=== PATIENT | female | born 1985 | race Two or more races ===

== ENCOUNTER 2016-10-10 01:54 | Emergency (ER) | payer SELFPAY ==
[2016-10-10 02:10] VITALS: TEMP 97.9
[2016-10-10] MEDS ORDERED: Lidocaine 1% Inj (20ml) ONE (02:17)
[2016-10-10 02:31] VITALS: PULSE 100
[2016-10-10] MEDS ORDERED: Oxycodone/Acetaminophen 5/325 mg Tab PO STA (02:40)
--- NOTE | 2016-10-10 02:51 | ED PDOC ---
Arrival/HPI - General Chief Complaint: Finger,Hand,&Wrist Time Seen by Provider: 10/10/16 02:11 Historian: Patient - History of Present Illness Narrative History of Present Illness (Text): 10/10/16 02:48 Jing Franklin is a 31 year old female who presents to the emergency department following dislocation of left thumb. States she was getting up from bed tonight when she heard a "pop" and dislocated her left thumb. Reports of pain to the area. Denies any other complaints. Time/Duration: Prior to Arrival Symptom Onset: Sudden Symptom Course: Unchanged Severity Level: Mild Activities at Onset: Light Past Medical History - Provider Review Nursing Documentation Reviewed: Yes - Psychiatric Hx Substance Use: No Family/Social History - Physician Review Nursing Documentation Reviewed: Yes Family/Social History: No Known Family HX Smoking Status: no Hx Alcohol Use: Yes Hx Substance Use: No Allergies/Home Meds Allergies/Adverse Reactions: Allergies No Known Allergies Allergy (Verified 10/10/16 02:09) Home Medications: Home Meds Medication Instructions Recorded Confirmed Alprazolam [Xanax] 0.5 mg PO HS 10/10/16 10/10/16 Review of Systems - Physician Review All systems were reviewed & negative as marked: Yes - Review of Systems Constitutional: Normal. absent: Fatigue, Fevers Respiratory: Normal. absent: SOB, Cough, Sputum Cardiovascular: Normal. absent: Chest Pain, Palpitations Gastrointestinal: Normal. absent: Abdominal Pain, Diarrhea, Nausea, Vomiting Genitourinary Female: Normal Musculoskeletal: Other (left thumb dislocation ) Neurological: Normal. absent: Headache, Dizziness Psychiatric: Normal Physical Exam Vital Signs Reviewed: Yes Vital Signs Temp Pulse Resp BP Pulse Ox 10/10/16 05:36 18 108/74 99 10/10/16 02:31 97.9 F 100 H 22 100 10/10/16 02:05 97.9 F 103 H 18 131/98 H 99 Temperature: Afebrile Blood Pressure: Hypertensive Pulse: Tachycardic Respiratory Rate: Normal Appearance: Positive for: Well-Appearing, Non-Toxic, Comfortable Pain Distress: None Mental Status: Positive for: Alert and Oriented X 3 - Systems Exam Head: Present: Atraumatic, Normocephalic Pupils: Present: PERRL Conjunctiva: Present: Normal Mouth: Present: Moist Mucous Membranes Respiratory/Chest: Present: Clear to Auscultation, Good Air Exchange. No: Respiratory Distress, Accessory Muscle Use Cardiovascular: Present: Regular Rate and Rhythm, Normal S1, S2. No: Murmurs Upper Extremity: Present: NORMAL PULSES, Neurovascularly Intact, Deformity ( dislocated left thumb ). No: Cyanosis, Edema, Swelling, Erythema, Temperature Abnormalties Neurological: Present: GCS=15, CN II-XII Intact, Speech Normal Skin: Present: Warm, Dry, Normal Color. No: Rashes Psychiatric: Present: Alert, Oriented x 3, Normal Insight, Normal Concentration Medical Decision Making ED Course and Treatment: 10/10/16 02:51 Impression: A 31 year old female who presents to the emergency department complaining of dislocation of left thumb. Differential Diagnosis included but are not limited to: Plan: -- Percocet -- X-ray left thumb -- Reassess and disposition Progress Notes: 10/10/16 02:45 Offered patient digital block prior to reduction, but patient refused. Left thumb dislocation reduced with good alignment. pt tolerated procedure well nv exam intact post reduction 10/10/16 04:12 X-ray of thumb shows no fracture and proper alignment. 10/11/16 05:34 - RAD Interpretation Radiology Orders: 10/10/16 02:18 HAND LEFT THUMB [RAD] Stat Sales Closer: ED Physician - Medication Orders Current Medication Orders: Discontinued Medications Lidocaine HCl (Lidocaine 1% (20ml)) Confirm Administered Dose 20 ml .ROUTE .STK- MED ONE Stop: 10/10/16 02:18 Oxycodone/Acetaminophen (Percocet 5/325 Mg Tab) 1 tab PO STAT STA Stop: 10/10/16 02:41 Last Admin: 10/10/16 02:56 Dose: 1 tab - Scribe Statement The provider has reviewed the documentation as recorded by the Jsoafat Brooke Provider Attestation: Provider Scribe Attestation: All medical record entries made by the Jamesibrayne were at my direction and personally dictated by me. I have reviewed the chart and agree that the record accurately reflects my personal performance of the history, physical exam, medical decision making, and the department course for this patient. I have also personally directed, reviewed, and agree with the discharge instructions and disposition. Disposition/Present on Arrival - Present on Arrival Any Indicators Present on Arrival: No History of DVT/PE: No History of Uncontrolled Diabetes: No Urinary Catheter: No History of Decub. Ulcer: No History Surgical Site Infection Following: None - Disposition Have Diagnosis and Disposition been Completed?: Yes Diagnosis: Thumb dislocation Disposition: HOME/ ROUTINE Disposition Time: 05:35 Condition: GOOD Discharge Instructions (ExitCare): Finger Dislocation (ED) Prescriptions: oxyCODONE/Acetaminophen [Percocet 5/325 mg Tab] 1 ea PO QID #8 tab Referrals: Gene Uriostegui MD [Staff Provider] - Follow up with primary
[2016-10-10 05:37] VITALS: BP 108/74; RESP 18; O2SAT 99
--- NOTE | 2016-10-10 07:35 | RAD ---
PROCEDURE: Left Thumb radiographs. HISTORY: pain COMPARISON: None. TECHNIQUE: AP radiograph of the left hand, as well as spot oblique and lateral images of thumb were obtained. FINDINGS: LEFT THUMB: Normal left thumb, without fracture or focal lesion. Remainder of the left hand (as seen on the AP view) grossly unremarkable. JOINTS: Normal. SOFT TISSUES: Normal. OTHER FINDINGS: None. IMPRESSION: Normal left thumb radiographs.
== END 2016-10-10 05:16 | disposition home or self-care (01) ==
LOC: ED 01:54
DX: S63.105A Unspecified dislocation of left thumb, initial encounter (principal); X50.0XXA Overexertion from strenuous movement or load, initial encounter; Y93.89 Activity, other specified; Y92.003 Bedroom of unspecified non-institutional (private) residence as the place of occurrence of the external cause